=== PATIENT | male | born 1960 | race Caucasian/White ===

== ENCOUNTER → 2024-06-23 | Outpatient (CLI) | payer MEDICARE, MEDICAID, SELFPAY ==
--- NOTE | 2024-06-23 09:00 | XR_ITS ---
EXAMINATION: XR abdomen 1V ORDERING PROVIDER: Ana Suh MD HISTORY: Encounter for screening for malignant neoplasm of colon. 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 TECHNIQUE: 2 KUBs. COMPARISON: 01/28/2024, [facility]. 10/01/2023, CT abdomen pelvis.. FINDINGS: Lung bases clear. Nonobstructive bowel gas pattern. Mild colonic stool burden primarily in the descending colon. Moderate stool density projecting over the rectum. No abnormal calcifications. Mild to moderate bony degenerative changes, including mild levoconvex curvature of the lumbar spine. IMPRESSION: Mild colonic and moderate rectal stool burden. Patient given additional bowel preparatory kit. Rescheduled double contrast enema for 06/24/2024.
== END | disposition home or self-care (01) ==
LOC: SDIM 08:40
PROVIDERS: PCP Family Medicine; Referring Provider Surgery; Visit Provider Surgery
DX: Z12.11 Encounter for screening for malignant neoplasm of colon (principal); K59.00 Constipation, unspecified
CPT/HCPCS: 74018

== ENCOUNTER → 2024-06-24 | Outpatient (CLI) | payer MEDICARE, MEDICAID, SELFPAY ==
--- NOTE | 2024-06-24 10:00 | XR_ITS ---
EXAMINATION: XR barium enema w/air contrast HISTORY: 63-year-old male status post colonoscopy 01/07/2024 with limited visualization due to multiple colonic diverticula. Scope could not be advanced beyond the sigmoid colon. COMPARISON: 06/23/2014, 01/27/2014, [facility]. 10/01/2023, CT abdomen pelvis TECHNIQUE: Aed Trainer radiograph of the abdomen was followed by multiple fluoroscopic images before and after the uneventful administration of water-soluble contrast and air utilizing double contrast technique per rectum. This was followed by chief counsel radiographs of the abdomen and pelvis. Rectal barium was not available, and thus water-soluble contrast was utilized. This results in limited evaluation. FLUOROSCOPY TIME: 6.3 min AIR KERMA: 406.04 mGy FINDINGS: Nonobstructive bowel gas pattern. Minimal residual colonic stool burden. Moderate degenerative changes of the lumbar spine. No abnormal calcifications. Innumerable colonic diverticula are identified, primarily affecting the sigmoid and descending colon. The colon fills normally. There is no stricture or extrinsic mass effect. The appendix fills with air and contrast, and is not abnormally dilated. There is no significant reflux of contrast into the terminal ileum. There is an ovoid filling defect in the cecum seen on several views, which disappears after pressure with paddle placement and follow-up spot imaging. In the mid descending colon, there is a 7 mm filling defect, which persists on several post imaging spot radiographs. IMPRESSION: Questionable mid sigmoid colon polyp. Please note rectal barium is not available, and water-soluble contrast had to be used, which somewhat limits examination. Recommend correlation with CT colonography versus repeat colonoscopy. Discussed with Dr. Suh in person.
== END | disposition home or self-care (01) ==
LOC: SDIM 06-27 08:18
PROVIDERS: PCP Family Medicine; Referring Provider Surgery; Visit Provider Surgery
DX: Z12.11 Encounter for screening for malignant neoplasm of colon (principal)
CPT/HCPCS: 74280; Q9963